=== PATIENT | male | born 1970 | race Caucasian/White ===

== ENCOUNTER 2017-10-02 05:41 | Emergency (ER) | payer OTHER ==
[~2017-10-02] VITALS: Ht 180.3 cm; Wt 93.0 kg
[~2017-10-02 05:41] MED LIST: VENL37.57 PO; ZOLP10TA PO
[2017-10-02] MEDS ORDERED: CLON0.1T PO (06:01)
[2017-10-02] MEDS ORDERED: ESZO2TAB4 PO (06:01)
[2017-10-02] MEDS ORDERED: TRILIPTAL (06:01)
--- NOTE | 2017-10-02 06:51 | ED Psychosocial ---
General Chief Complaint: Substance Abuse Stated Complaint: WANTS TO GO TO REHAB Nursing Triage Note: WANTS INPATIENT DETOX FROM IV METH USE Source: patient Exam Limitations: no limitations History of Present Illness Time seen by provider: 06:15 Initial Comments Here with report of needing inpatient assistance for detox from methamphetamine and marijuana. States that he is been using quite heavily over the last month and a half. Has history of PTSD while in the and is currently [facility]. He believes his main VA provider is [place] but may be [place] now and he does have local mental health services at [facility]. States that the meds that he is on for PTSD caused him hallucinations and he has not been taking them so he has worsening of his PTSD symptoms including depression and anxiety. Denies other concerns currently. States last use was approximately 30 hours ago of methamphetamine and marijuana. States he occasionally uses opioids as well. Timing/Duration: getting worse Associated Symptoms: anxiety, impaired concentration, other (depression and drug abuse concerns) Allergies and Home Medications Allergies Coded Allergies: No Known Drug Allergies (Unverified , 09/03/14) Home Medications Clonidine HCl 0.1 Mg Tablet, Unknown Dose PO BID, (Reported) Eszopiclone 2 Mg Tablet, Unknown Dose PO, (Reported) [Triliptal] , (Reported) Constitutional: see HPI, No chills, No fever EENTM: no symptoms reported Respiratory: no symptoms reported, No short of breath, No wheezing Cardiovascular: No chest pain, No edema, No palpitations Gastrointestinal: No abdominal pain, No nausea, No vomiting Genitourinary: no symptoms reported Musculoskeletal: no symptoms reported Skin: no symptoms reported Psychiatric/Neurological: See HPI, Anxiety, Depressed, Emotional Problems All Other Systems Reviewed Negative Unless Noted: Yes Past Jbybdji-Skqsdq-Nqwbay Hx Patient Social History Alcohol Use: Regular Use Number of Drinks Today: BB Alcohol Beverage of Choice: [place] Recreational Drug Use: Yes Drug of Choice: CANNIBUS, METH, opiods Smoking Status: Current Everyday Smoker Type Used: Cigarettes, Smokeless Tobacco Recent Foreign Travel: No Contact w/Someone Who Travel: No Recent Infectious Disease Expo: No Recent Hopitalizations: No Immunizations Up To Date Tetanus Booster (TDap): Unknown Seasonal Allergies Seasonal Allergies: No Surgeries History of Surgeries: Yes (LYMPH NODE BX) Respiratory History of Respiratory Disorde: No Cardiovascular History of Cardiac Disorders: No Cardiac Disorders: Hypertension Neurological History of Neurological Disord: No Reproductive System Hx Reproductive Disorders: No Sexually Transmitted Disease: No HIV/AIDS: No Genitourinary History of Genitourinary Disor: No Gastrointestinal History of Gastrointestinal Di: No Musculoskeletal History of Musculoskeletal Dis: No Endocrine History of Endocrine Disorders: No HEENT History of HEENT Disorders: No Cancer History of Cancer: No Psychosocial History of Psychiatric Problem: Yes (ANGER MANAGEMENT) Behavioral Health Disorders: Anxiety, PTSD Integumentary History of Skin or Integumenta: No Blood Transfusions History of Blood Disorders: No Adverse Reaction to a Blood Tr: No Reviewed Nursing Assessment Reviewed/Agree w Nursing PMH: Yes Family Medical History Significant Family History: No Pertinent Family Hx Physical Exam Vital Signs Vital Sign - Last 12Hours 10/02/17 06:01 Temp 98.1 Pulse 89 Resp 16 B/P (MAP) 131/92 (105) Pulse Ox 98 O2 Delivery Room Air Capillary Refill : Less Than 3 Seconds General Appearance: WD/WN, no apparent distress HEENT: PERRL/EOMI, pharynx normal Neck: full range of motion, supple Respiratory: lungs clear, normal breath sounds Cardiovascular: regular rate, rhythm, no murmur Peripheral Pulses: 2+ Dorsalis Pedis (R), 2+ Left Dors-Pedis (L), 2+ Radial Pulses (R), 2+ Radial Pulses (L) Gastrointestinal: non tender, soft Extremities: non-tender, normal inspection Neurologic/Psychiatric: alert, oriented x 3 (helped her regular) Appearance/Memory: appropriate appearance, appropriate insight, neat Behavior/Eye Contact: cooperative, good eye contact, normal speech Thoughts/Hallucinations: normal thought pattern, no apparent hallucination Skin: normal color, warm/dry Progress/Results/Core Measures Results/Orders Lab Results Laboratory Tests Test 10/02/17 06:45 10/02/17 06:50 Range/Units White Blood Count 7.3 4.3-11.0 10^3/uL Red Blood Count 5.02 4.35-5.85 10^6/uL Hemoglobin 15.4 13.3-17.7 G/DL Hematocrit 45 40-54 % Mean Corpuscular Volume 90 80-99 FL Mean Corpuscular Hemoglobin 31 25-34 PG Mean Corpuscular Hemoglobin Concent 34 32-36 G/DL Red Cell Distribution Width 12.9 10.0-14.5 % Platelet Count 233 130-400 10^3/uL Mean Platelet Volume 9.7 7.4-10.4 FL Neutrophils (%) (Auto) 56 42-75 % Lymphocytes (%) (Auto) 27 12-44 % Monocytes (%) (Auto) 12 0-12 % Eosinophils (%) (Auto) 4 0-10 % Basophils (%) (Auto) 1 0-10 % Neutrophils # (Auto) 4.1 1.8-7.8 X 10^3 Lymphocytes # (Auto) 2.0 1.0-4.0 X 10^3 Monocytes # (Auto) 0.9 0.0-1.0 X 10^3 Eosinophils # (Auto) 0.3 0.0-0.3 10^3/uL Basophils # (Auto) 0.1 0.0-0.1 10^3/uL Sodium Level 138 135-145 MMOL/L Potassium Level 4.1 3.6-5.0 MMOL/L Chloride Level 103 98-107 MMOL/L Carbon Dioxide Level 26 21-32 MMOL/L Anion Gap 9 5-14 MMOL/L Blood Urea Nitrogen 9 7-18 MG/DL Creatinine 0.83 0.60-1.30 MG/DL Estimat Glomerular Filtration Rate > 60 BUN/Creatinine Ratio 11 Glucose Level 93 70-105 MG/DL Calcium Level 9.5 8.5-10.1 MG/DL Total Bilirubin 0.5 0.1-1.0 MG/DL Aspartate Amino Transf (AST/SGOT) 25 5-34 U/L Alanine Aminotransferase (ALT/SGPT) 108 H 0-55 U/L Alkaline Phosphatase 95 40-136 U/L Total Protein 7.4 6.4-8.2 GM/DL Albumin 3.9 3.2-4.5 GM/DL TSH [place] Testing 1.78 0.35-4.94 UIU/ML Salicylates Level < 5.0 L 5.0-20.0 MG/DL Acetaminophen Level < 10 L 10-30 UG/ML Serum Alcohol < 10 <10 MG/DL Urine Color YELLOW Urine Clarity VERY CLOUDY H Urine pH 6.5 5-9 Urine Specific [place] 1.015 L 1.016-1.022 Urine Protein 2+ H NEGATIVE Urine Glucose (UA) NEGATIVE NEGATIVE Urine Ketones NEGATIVE NEGATIVE Urine Nitrite NEGATIVE NEGATIVE Urine Bilirubin NEGATIVE NEGATIVE Urine Urobilinogen NORMAL NORMAL MG/DL Urine Leukocyte Esterase NEGATIVE NEGATIVE Urine RBC (Auto) NEGATIVE NEGATIVE Urine RBC NONE /HPF Urine WBC 0-2 /HPF Urine Squamous Epithelial Cells NONE /HPF Urine Crystals NONE /LPF Urine Bacteria NEGATIVE /HPF Urine Casts NONE /LPF Urine Mucus NEGATIVE /LPF Urine Other LG SPERM H /HPF Urine Culture Indicated NO Urine Opiates Screen NEGATIVE NEGATIVE Urine Oxycodone Screen NEGATIVE NEGATIVE Urine Methadone Screen NEGATIVE NEGATIVE Urine Propoxyphene Screen NEGATIVE NEGATIVE Urine Barbiturates Screen NEGATIVE NEGATIVE Ur Tricyclic Antidepressants Screen NEGATIVE NEGATIVE Urine Phencyclidine Screen NEGATIVE NEGATIVE Urine Amphetamines Screen POSITIVE H NEGATIVE Urine Methamphetamines Screen POSITIVE H NEGATIVE Urine Benzodiazepines Screen NEGATIVE NEGATIVE Urine Cocaine Screen NEGATIVE NEGATIVE Urine Cannabinoids Screen POSITIVE H NEGATIVE My Orders Orders - SERGIO BELL MD Ua Culture If Indicated (10/02/17 06:38) Cbc With Automated Diff (10/02/17 06:38) Comprehensive Metabolic Panel (10/02/17 06:38) Alcohol (10/02/17 06:38) Drug Screen Stat (Urine) (10/02/17 06:38) Acetaminophen (10/02/17 06:38) Salicylate (10/02/17 06:38) Ekg Tracing (10/02/17 06:38) Thyroid Analyzer (10/02/17 06:38) General/Regular (10/02/17 Breakfast) Vital Signs/I&O Vital Sign - Last 12Hours 10/02/17 06:01 Temp 98.1 Pulse 89 Resp 16 B/P (MAP) 131/92 (105) Pulse Ox 98 O2 Delivery Room Air Blood Pressure Mean: 105 Progress Note : Progress Note Seen and evaluated. Labs, EKG and UA ordered as well as a UDS. Patient is adamant that he wants inpatient rehabilitation services. We will do medical clearance and pursue services as appropriate. Patient is here with his mother and she potentially could transport if facility was found. 0752: Medically cleared for inpatient rehabilitation. We will initiate process of contact with the VA system. The VA in [place] and [place] were contacted by nursing. The [facility] is not his VA and instructed to call to [place]. Nursing called the VA in [place] and gave information they report that this is typically and out patient to inpatient process requiring them to present first to clinic for evaluation and then they will determine eligibility afterwards. He is going to talk with the screening team physicians and call back. 0908: I did get call back from the treatment steam tank operator and overall we will need to pursue transfer via the transfer nurse and is given phone number for that. He does have a physician at the [facility], Dr. Lund. We will pursue transfer via transfer line. 1035: I did discuss the case with Dr. Rome that the [facility] ER and effort to transfer the patient. They're currently on ambulance diversion and had no beds in our unable to accept for transfer. He states that we can pursue local options or other VA's. He did give me phone numbers for [place] and [place]. 1300: We've had no LOC in finding inpatient treatment. He does have established mental health care at [facility]. Patient is very concerned because he states the CT is not paying for that for some reason. He does have appointment at 1500 today with them now and will follow-up with them. I did speak with him about [facility] local addiction treatment services. He was given information as well as contact for that service and instructed to call. Patient states that he would. He is obviously frustrated due to the lack of perceived help from the VA. He will follow-up today as directed. He has tolerated both breakfast and lunch without difficulty. He has a safe place to go home to with his mother and he will stay there. Discharged home with return precautions. Patient verbalize understanding instructions and agreement with plan. ECG Initial ECG Impression Date: Oct 02, 2017 Initial ECG Impression Time: 06:46 Initial ECG Rate: 69 Initial ECG Rhythm: Normal Sinus Initial ECG Impression: Normal Initial ECG Comparisson: Unchanged (03 September 2014) Comment Sinus rhythm with normal axis. No evidence of ST elevation DC. Unchanged from previous. Interpreted by me. Departure Impression Impression: Primary Impression: Methamphetamine abuse Additional Impressions: Marijuana abuse Depression with anxiety Disposition: 01 HOME, SELF-CARE Condition: Stable Departure-Patient Inst. Decision time for Depature: 13:18 Referrals: [facility],LOCAL PHYSICIAN (PCP) Primary Care Physician Patient Instructions: ALCOHOL AND SUBSTANCE ABUSE Add. Discharge Instructions: All discharge instructions reviewed with patient and/or family. Voiced understanding. It is very important that he follow-up with your mental health provider at the appointment scheduled for you today at 3 p.m. at [facility]. Also , you should call and make appointment with the addiction treatment services at the same facility using the information you were given. Avoid illicit drugs and alcohol. Return for worsening, fever, vomiting, weakness, breathing problems, increasing anxiety or depression, thoughts of harm herself or others or other concerns as needed. SERGIO BELL MD Oct 02, 2017 06:51
[2017-10-02 06:56] LABS: BILIRUBIN,URINE NEGATIVE (NEGATIVE); KETONES,URINE NEGATIVE (NEGATIVE); LEUKOCYTE ESTERASE ,URINE NEGATIVE (NEGATIVE); NITRITE,URINE NEGATIVE (NEGATIVE); PH,URINE 6.5 (5-9); PROTEIN,URINE 2+ (NEGATIVE); UROBILINOGEN,URINE NORMAL (NORMAL)
[2017-10-02 06:59] LABS: BASOPHILS # (AUTO) 0.1 10^3/uL (0.0-0.1); BASOPHILS % (AUTO) 1 % (0-10); EOSINOPHILS # (AUTO) 0.3 10^3/uL (0.0-0.3); EOSINOPHILS % (AUTO) 4 % (0-10); LYMPHOCYTES % (AUTO) 27 % (12-44); MEAN CORPUSCULAR HEMOGLOBIN 31 PG (25-34); MEAN CORPUSCULAR HGB CONC 34 G/DL (32-36); MEAN CORPUSCULAR VOLUME 90 FL (80-99); MEAN PLATELET VOLUME 9.7 FL (7.4-10.4); MONOCYTES # (AUTO) 0.9 X 10^3 (0.0-1.0); MONOCYTES % (AUTO) 12 % (0-12); NEUTROPHILS # (AUTO) 4.1 X 10^3 (1.8-7.8); NEUTROPHILS % (AUTO) 56 % (42-75); PLATELET COUNT 233 10^3/uL (130-400); RED BLOOD COUNT 5.02 10^6/uL (4.35-5.85); RED CELL DISTRIBUTION WIDTH 12.9 % (10.0-14.5); WHITE BLOOD COUNT 7.3 10^3/uL (4.3-11.0)
[2017-10-02 07:12] LABS: WBC,URINE 0-2 /HPF
[2017-10-02 07:18] LABS: ALANINE AMINOTRANSFERASE 108 U/L (0-55); ALBUMIN 3.9 GM/DL (3.2-4.5); ALCOHOL < 10 MG/DL (<10); ANION GAP 9 MMOL/L (5-14); ASPARTATE AMINO TRANSFERASE 25 U/L (5-34); BILIRUBIN,TOTAL 0.5 MG/DL (0.1-1.0); BLOOD UREA NITROGEN 9 MG/DL (7-18); BUN/CREATININE RATIO 11; CALCIUM 9.5 MG/DL (8.5-10.1); CARBON DIOXIDE 26 MMOL/L (21-32); CHLORIDE 103 MMOL/L (98-107); CREATININE SERUM 0.83 MG/DL (0.60-1.30); GFR ESTIMATED > 60; GLUCOSE 93 MG/DL (70-105); POTASSIUM 4.1 MMOL/L (3.6-5.0); SALICYLATE < 5.0 MG/DL (5.0-20.0); SODIUM 138 MMOL/L (135-145); TOTAL PROTEIN 7.4 GM/DL (6.4-8.2)
[2017-10-02 07:22] LABS: ACETAMINOPHEN < 10 UG/ML (10-30)
[2017-10-02 13:38] VITALS: BP 131/92
== END 2017-10-02 13:38 | disposition home or self-care (01) ==
LOC: EDUNIT# 05:41 → ER 05:45
DX: F15.10 Other stimulant abuse, uncomplicated (principal); F12.10 Cannabis abuse, uncomplicated; F41.8 Other specified anxiety disorders; I10 Essential (primary) hypertension; F43.10 Post-traumatic stress disorder, unspecified; F17.210 Nicotine dependence, cigarettes, uncomplicated
CPT/HCPCS: 36415; 80053; 80306; 80320; 80329; 81000; 84443; 85025; 93005